=== PATIENT | female | born 1995 | race African-American/Black ===

== ENCOUNTER → 2020-02-08 | Outpatient (CLI) | payer BC ==
[~2020-02-08] MED LIST: NOHOMEMEDICATIONS; NORCO 5-325 TA1 EAC1 PO
== END ==
LOC: M.LAB 13:36
PROVIDERS: ATTEND Surgery
DX: Z01.818 Encounter for other preprocedural examination (principal); Z11.59 Encounter for screening for other viral diseases

== ENCOUNTER → 2020-02-12 | Day surgery (SDC) | payer BC ==
--- NOTE | ~2020-02-12 | OP ---
[facility] [address] [place] [address] OPERATIVE REPORT Name: KASSY ESCALONA Room: [facility]#: [id number] Admission: 02/12/20 Attend Phys: Ramakrishna Booker Discharge: Date of : 89 Report #: [id number] THIS REPORT FOR: //name// cc: Farida Mckeon MD, Allison Louise MD ~ THIS REPORT FOR: //name// CC: Farida Booker DATE OF SERVICE: 02/12/2020 PREOPERATIVE DIAGNOSIS: Left axillary hidradenitis suppurativa. POSTOPERATIVE DIAGNOSIS: Left axillary hidradenitis suppurativa. OPERATION: Excision of left axillary hidradenitis suppurativa. SURGEON: Ramakrishna Booker MD ANESTHESIA: General. ESTIMATED BLOOD LOSS: Minimal. SPECIMEN: Left axillary hidradenitis. DESCRIPTION OF PROCEDURE: After informed consent was obtained, the patient was brought to the operating room and placed supine. SCDs were placed and working, preoperative antibiotics were administered, general anesthesia was induced. The left axilla was prepped and draped in the usual sterile fashion. Skin knife was used to make an approximately 4 x 4 cm incision over the palpable affected area in the left axilla. Cautery dissection was made down through the subcutaneous tissue. Cautery dissection was used to dissect down to healthy fat. The specimen was then removed. Cautery was used to achieve hemostasis. The area was then copiously irrigated with normal saline and packed with sterile gauze. Sterile dressings were applied. COMPLICATIONS: None. DISPOSITION: The patient was taken to recovery in satisfactory condition. By: [id number] Booker MD /nt
[2020-02-12 11:47] LABS: HEMATOCRIT 35.3 % (37.0-47.0); HEMOGLOBIN 12.7 gm/dL (12.0-15.0)
--- NOTE | 2020-02-16 11:08 | PATH ---
[address] [address] PATHOLOGY RPT PROCEDURE Name: KASSY ESCALONA Room: [facility].#: [id number] Admission: 02/12/20 Date of : 89 Discharge: Report #: [id number] Path Case #: [id number] [facility] Accession Number: [id number] . 01 Material submitted: . axillary tail of breast - LEFT AXILLARY MASS. Modifiers: left . 01 Clinical history: . Hidradenitis left axilla. . 02 Diagnosis: Left axillary mass: - Benign skin with features typical of hidradenitis suppurativa including subcutaneous acute and chronic inflammation, abscess formation, foreign body-type granulomatous response and fibrosis. (ANA/db; 02/15/2020) LBQ 02/15/2020 1607 Local . 02 Electronically signed: . Navi Cevallos MD, Pathologist NPI- [id number] . 01 Gross description: . Received in formalin labeled "Kassy Escalona, left axillary mass" is a portion of wyman-brown skin and underlying soft tissue measuring 4.8 x 3.6 x 1.1 cm. Upon sectioning, the cut surface displays extensive wyman-white fibrotic areas and focal hemorrhage. Sinus tracks are not definitively identified. Search Planner tissue is submitted in A1-A2. ([facility]; 02/13/2020) [facility] 02/13/2020 1100 Local . 02 Pathologist provided ICD-10: L98.9, L02.414, L90.5 . 02 CPT . 194923 Specimen Comment: A courtesy copy of this report has been sent to [phone], [phone] Specimen Comment: [phone] Specimen Comment: Report sent to / DR GONSALVES Performed at: [address], [place], [place] [id number] MD Luke Lopez MD Phone: [phone] [facility]formed at: [facility] [address], [place], [place] [id number] MD Navi Cevallos MD Phone: [phone]
== END | disposition home or self-care (01) ==
LOC: M.SUR 11:01
PROVIDERS: ATTEND Surgery
DX: L73.2 Hidradenitis suppurativa (principal); Z79.891 Long term (current) use of opiate analgesic

== ENCOUNTER → 2020-03-23 | Day surgery (SDC) | payer BC ==
--- NOTE | ~2020-03-23 | OP ---
[facility] [address] [place] [address] OPERATIVE REPORT Name: KASSY ESCALONA Room: [facility]#: [id number] Admission: 03/23/20 Attend Phys: Ramakrishna Booker Discharge: Date of : 89 Report #: [id number] THIS REPORT FOR: //name// cc: Farida Mckeon MD, Allison Louise MD ~ THIS REPORT FOR: //name// CC: Farida Booker DATE OF SERVICE: 03/23/2020 PREOPERATIVE DIAGNOSIS: Left axillary hidradenitis suppurativa. POSTOPERATIVE DIAGNOSIS: Left axillary hidradenitis suppurativa. OPERATION: Excision of left axillary hidradenitis suppurativa. SURGEON: Ramakrishna Booker MD ANESTHESIA: General. ESTIMATED BLOOD LOSS: Minimal. SPECIMEN: Left axillary hidradenitis. DESCRIPTION OF PROCEDURE: After informed consent was obtained, the patient was brought to the operating room and placed supine. SCDs were placed and working, preoperative antibiotics were administered, general anesthesia was induced. The left axilla was then prepped and draped in the usual sterile fashion. This was in the left arm at the level of the axilla. A 3 x 2 cm elliptical incision was made over the affected area. Cautery dissection was made down through the affected tissue down to healthy fat. The area was then packed with sterile gauze. Sterile dressings were applied. COMPLICATIONS: None. DISPOSITION: The patient was taken to recovery in satisfactory condition. By: [id number] Booker MD /nt
[2020-03-23 09:19] LABS: HEMOGLOBIN 12.9 gm/dL (12.0-15.0)
--- NOTE | 2020-03-24 17:06 | PATH ---
[address] [address] PATHOLOGY RPT PROCEDURE Name: KASSY ESCALONA Room: [facility] Michaela.Lance.#: [id number] Admission: 03/23/20 Date of : 89 Discharge: Report #: [id number] Path Case #: [id number] [facility] Accession Number: [id number] . 01 Material submitted: . axillary tail of breast - LEFT AXILLARY HIDRADENITIS. Modifiers: left . 01 Clinical history: . Left axillary hidradenitis . 02 Diagnosis: Left axillary hidradenitis: - Benign skin with features typical of hidradenitis suppurativa including prominent acute and chronic inflammation, abscess formation and fibrosis. (ANA:tashi; 03/24/2020) MBR 03/24/2020 1554 Local . 02 Electronically signed: . Navi Cevallos MD, Pathologist NPI- [id number] . 01 Gross description: . The specimen is received in formalin, labeled "Kassy Escalona", "left axillary hidradenitis". Received is an unoriented ellipse of skin with attached subcutaneous tissue measuring 3.0 x 1.5 x 1.0 cm. The epidermal surface displays a wrinkled, pale pink-wyman appearance. Sectioning reveals a possible ruptured previous tract area measuring 1.8 x 0.5 x 0.5 cm. No solid masses or nodules are identified. Nurse Practitioner Per Diem sections from the tract area are submitted in cassettes A1 and A2.(SNA; 03/23/2020) [facility]ITT 03/24/2020 1553 Local . 02 Pathologist provided ICD-10: L98.9, L02.412, L90.5 . 02 CPT . 939790 Specimen Comment: A courtesy copy of this report has been sent to [phone] Specimen Comment: [phone] Specimen Comment: Report sent to / DR GONSALVES Performed at: 01 [facility] [address], [place] [id number] MD Luke Lopez MD Phone: [phone] Performed at: [address] [facility] [address], [place], [place] [id number] MD Navi Cevallos MD Phone: [phone]
== END | disposition home or self-care (01) ==
LOC: M.SUR 08:56
PROVIDERS: ATTEND Surgery
DX: L73.2 Hidradenitis suppurativa (principal); L02.412 Cutaneous abscess of left axilla; L98.9 Disorder of the skin and subcutaneous tissue, unspecified; L90.5 Scar conditions and fibrosis of skin; Z11.59 Encounter for screening for other viral diseases